=== PATIENT | male | born 1965 | race Caucasian/White ===

== ENCOUNTER 2021-04-22 15:37 | Emergency (ER) | payer OTHER ==
[2021-04-22 17:38] LABS: BASOPHIL 0.7 % (0-2); EOSINOPHIL 0 % (0-5); HCT 40.5 % (42.0-52.0); HGB 14.2 g/dl (13.2-18.0); LYMPHOCYTE 1.8 % (15-48); MCH 27.7 pg (25.0-31.0); MCHC 35.1 g/dL (32.0-36.0); MCV 79.1 fL (78.0-100.0); MPV 11.6 fL (6.0-9.5); NEUTROPHIL 84.3 % (41-80); NRBC 0; RBC 5.12 M/uL (4.70-6.00); RDW 12.5 % (11.5-14.0)
[2021-04-22 17:55] LABS: ALBUMIN 2.7 g/dL (3.4-5.0); BILIRUBIN - TOTAL 2.4 mg/dL (0.2-1.0); BUN/CREAT RATIO (CALC) 25.8 RATIO; CREATININE 1.63 mg/dL (0.67-1.17); GLOBULIN (CALCULATION) 4.1 g/dL; POTASSIUM 3.4 mmol/L (3.5-5.1); TOTAL PROTEIN 6.8 g/dL (6.4-8.2)
[2021-04-22 17:58] LABS: LACTIC ACID 3.7 mmol/L (0.4-1.9)
[2021-04-22 18:02] LABS: PLT 33 K/uL (150-400)
[2021-04-22 18:03] LABS: WBC 12.4 K/uL (4.0-10.5)
[2021-04-22 18:30] LABS: CORONAVIRUS 2019 SARS-COV-2 NEGATIVE (NEGATIVE); INFLUENZA A NAA NEGATIVE (NEGATIVE)
[2021-04-22 19:59] LABS: BILIRUBIN 1+ mg/dL (NEGATIVE); BLOOD 2+ Ery/uL (NEGATIVE); COLOR YELLOW (YELLOW); GLUCOSE (U) 3+ mg/dL (NORMAL); LEUKOCYTES 2+ Leu/uL (NEGATIVE); NITRITE POSITIVE (NEGATIVE); PROTEIN TRACE (LOW) mg/dL (NEGATIVE); UROBILINOGEN 0.2 mg/dL (0.2-1.0)
[2021-04-22 20:06] LABS: CLARITY HAZY (CLEAR); URINARY WBC 20-50
[2021-04-22 20:07] LABS: BACTERIA 4+
[2021-04-23 06:32] LABS: BUN/CREAT RATIO (CALC) 26.7 RATIO; CREATININE 1.35 mg/dL (0.67-1.17); POTASSIUM 3.2 mmol/L (3.5-5.1)
[2021-04-23 07:59] LABS: HCT 37.1 % (42.0-52.0); HGB 12.9 g/dl (13.2-18.0); MCH 28.5 pg (25.0-31.0); MCHC 34.8 g/dL (32.0-36.0); MCV 82.1 fL (78.0-100.0); MPV 12.6 fL (6.0-9.5); RBC 4.52 M/uL (4.70-6.00); RDW 13.1 % (11.5-14.0)
[2021-04-23 08:09] LABS: WBC 14.9 K/uL (4.0-10.5)
[2021-04-23 08:33] LABS: INR 1.28 (0.9-1.2); PROTHROMBIN TIME 15.3 SECONDS (11.8-13.4)
[2021-04-23 10:35] LABS: ALBUMIN 2.2 g/dL (3.4-5.0); BILIRUBIN - TOTAL 2.9 mg/dL (0.2-1.0); BUN/CREAT RATIO (CALC) 21.2 RATIO; CREATININE 1.89 mg/dL (0.67-1.17); GLOBULIN (CALCULATION) 3.6 g/dL; POTASSIUM 2.9 mmol/L (3.5-5.1); TOTAL PROTEIN 5.8 g/dL (6.4-8.2)
== END 2021-04-23 12:30 | disposition other institution (70) ==
LOC: FER 15:37
PROVIDERS: Emergency Medicine; Physician Assistant
DX: A41.9 Sepsis, unspecified organism (principal); R65.21 Severe sepsis with septic shock; N17.9 Acute kidney failure, unspecified; E11.00 Type 2 diabetes mellitus with hyperosmolarity without nonketotic hyperglycemic-hyperosmolar coma (NKHHC); N41.2 Abscess of prostate; B96.89 Other specified bacterial agents as the cause of diseases classified elsewhere; Z20.822 Contact with and (suspected) exposure to COVID-19; Z79.84 Long term (current) use of oral hypoglycemic drugs
CPT/HCPCS: 36415; 36600; 71045; 71275; 80048; 80053; 81001; 82009; 82803; 83010; 83605; 83615; 84484; 85025; 85610; 87040; 87077; 87186; 93005; 96365; 96366; 96367; 96368; 96375; 96376; J2543; J3480; J7030; J7060; Q9967; U0002